=== PATIENT | male | born 1945 | race Caucasian/White ===

== ENCOUNTER 2024-08-08 11:34 | Inpatient (IN) ==
[2024-08-08] MEDS: IPRATROPIUM/ALBUTEROL 3 ML AMPUL.NEB NEB ONE (12:33)
[2024-08-08] MEDS: methylPREDNISolone SOD SUCC 125 MG/2 ML VIAL IV ONE (13:04)
[2024-08-08] MEDS: LORazepam 2 MG/ML VIAL IV ONE (13:05)
[2024-08-08 13:48] LABS: Basophils # (Auto) 0.03 K/mcL (0.00-0.30); Basophils % (Auto) 0.4 % (0.0-2.0); Eosinophils # (Auto) 0.12 K/mcL (0.00-0.70); Eosinophils % (Auto) 1.6 % (0.0-7.0); Hematocrit 34.4 % (40.1-51.0); Hemoglobin 11.7 g/dL (13.7-17.5); Lymphocytes # (Auto) 1.12 K/mcL (1.50-4.80); Lymphocytes % (Auto) 14.6 % (15.5-49.0); Mean Cell Volume 89.1 fL (80.0-100.0); Monocytes # (Auto) 0.73 K/mcL (0.10-0.90); Monocytes % (Auto) 9.5 % (1.0-12.0); Neutrophils % (Auto) 73.6 % (38.0-78.0); Platelet Count 251 K/mcL (140-440); RBC 3.86 M/mcL (4.63-6.08); Red Cell Distribution Width 11.6 % (11.5-14.5); WBC 7.7 K/mcL (4.5-11.0)
[2024-08-08 13:59] LABS: Blood Urea Nitrogen 15 mg/dL (8-23); Calcium 8.9 mg/dL (8.6-10.4); Carbon Dioxide 34 mmol/L (22-30); Chloride 80 mmol/L (96-108); Glomerular Filtration Rate 114; Glucose 108 mg/dL (70-105); Potassium 4.7 mmol/L (3.3-5.1); Sodium 120 mmol/L (133-145)
[2024-08-08] MEDS: DEXAMETHASONE 10 MG/ML VIAL IV ONE (14:29)
[2024-08-08 15:00] LABS: ABG Methemoglobin 0.3 % (0.4-1.5); Total Hemoglobin 12.1 gm/Dl (13.5-16.5); VBG Base Excess 8 (-2-3); VBG HCO3 33.5 mmol/L (24.0-28.0); VBG PCO2 53.7 mmHg (41.0-51.0); VBG PH 7.41 U (7.32-7.42); VBG PO2 125.4 mmHg (25.0-40.0); VBG Total CO2 35.2 mmol/L (25.0-29.0)
[2024-08-08 15:09] LABS: proBNP 93.6 pg/mL (<450.0)
[2024-08-08 15:17] LABS: Thyroid Stimulating Hormone 1.08 uIU/mL (0.27-5.01)
[2024-08-08 15:26] LABS: ALT/SGPT 11 U/L (<40); AST/SGOT 19 U/L (<40); Albumin 4.5 gm/dL (3.2-5.2); Alkaline Phosphatase 93 U/L (39-117); Bilirubin,Direct < 0.2 mg/dL (0-0.3); Bilirubin,Total 0.7 mg/dL (0.1-1.0); Globulin 3.3 gm/dL (2.2-3.7); Uric Acid 1.7 mg/dL (2.5-8.0)
[2024-08-08] MEDS: HYDROmorphone 1 MG/ML SYRINGE IV ONE (15:33)
[2024-08-08] MEDS ORDERED: POTASSIUM CHLORIDE 20 MEQ TABLET PO PRN ×2 (15:55)
[2024-08-08] MEDS ORDERED: POTASSIUM CHLORIDE 40 MEQ in DEXTROSE 5% IN WATER 500 ML IV PRN (15:55)
[2024-08-08] MEDS ORDERED: ENALAPRILAT 1.25 MG/ML VIAL IV PRN (15:55)
[2024-08-08] MEDS ORDERED: hydrALAZINE 20 MG/ML VIAL IV PRN (15:55)
[2024-08-08] MEDS ORDERED: MAGNESIUM SULFATE 2 GM/50 ML BAG IV PRN (15:55)
[2024-08-08] MEDS ORDERED: POLYETHYLENE GLYCOL 3350 17 GM PACKET PO PRN (15:55)
[2024-08-08] MEDS: SODIUM CHLORIDE 1 GM TABLET PO SCH (16:21)
[2024-08-08] MEDS: FUROSEMIDE 40 MG/4 ML VIAL IV SCH (16:22)
[2024-08-08] MEDS: LIDOCAINE 4% TOP PATCH TOPICAL SCH (16:22)
[2024-08-08 17:39] LABS: Appearance,Urine Slightly Cloudy (Clear); Bilirubin,Urine Negative (Negative); Color,Urine Yellow; Glucose,Urine (UA) Negative (Negative); Ketones,Urine 40 mg/dL (Negative); Leukocyte Esterase,Urine Negative /uL (Negative); Nitrate,Urine Negative (Negative); Protein,Urine Negative (Negative); Specific Gravity,Urine 1.015 (1.000-1.035); Urine Blood Negative ery/mcL (Negative); Urine RBC 0 /hpf (0-3); Urine Squamous Epithelial Cell 0 /hpf (0-4); Urine WBC 0 /hpf (0-4); Urobilinogen,Urine Normal
[2024-08-08 18:08] LABS: Osmolality,Urine 408 mOSM/kg (80-1000)
[2024-08-08 18:13] LABS: Sodium, Urine Random 102 mmol/L
[2024-08-08] MEDS: BUDESONIDE 0.5 MG/2 ML AMPUL.NEB NEB SCH (18:23)
[2024-08-08] MEDS: IPRATROPIUM/ALBUTEROL 3 ML AMPUL.NEB NEB PRN (18:23)
[2024-08-08] MEDS: DOCUSATE SODIUM 100 MG CAPSULE PO SCH (20:10)
[2024-08-08] MEDS: BUDESONIDE 0.5 MG/2 ML AMPUL.NEB ONE (20:15)
[2024-08-08] MEDS: 0.9 % SODIUM CHLORIDE 10 ML SYRINGE IV SCH (20:18)
[2024-08-08] MEDS: guaiFENesin 600 MG TAB.SR.12H PO SCH (20:18)
[2024-08-08] MEDS: TAMSULOSIN 0.4 MG CAPSULE PO SCH (20:18)
[2024-08-08] MEDS: HYDROcodone/APAP 5/325MG TABLET PO PRN (21:44)
[2024-08-08] MEDS: METHOCARBAMOL 750 MG TABLET PO PRN (21:46)
[2024-08-09] MEDS: morphine 4 MG/ML VIAL IV PRN (01:54)
[2024-08-09 06:33] LABS: Basophils # (Auto) 0.01 K/mcL (0.00-0.30); Basophils % (Auto) 0.2 % (0.0-2.0); Eosinophils # (Auto) 0 K/mcL (0.00-0.70); Eosinophils % (Auto) 0 % (0.0-7.0); Hematocrit 31.1 % (40.1-51.0); Hemoglobin 10.7 g/dL (13.7-17.5); Lymphocytes # (Auto) 0.88 K/mcL (1.50-4.80); Lymphocytes % (Auto) 15.3 % (15.5-49.0); Mean Cell Volume 89.4 fL (80.0-100.0); Mean Corpuscular HGB Conc 34.4 g/dL (31.0-36.0); Mean Platelet Volume 9.8 fL (8.8-12.5); Monocytes # (Auto) 0.72 K/mcL (0.10-0.90); Monocytes % (Auto) 12.5 % (1.0-12.0); Neutrophils % (Auto) 71.7 % (38.0-78.0); Platelet Count 262 K/mcL (140-440); RBC 3.48 M/mcL (4.63-6.08); Red Cell Distribution Width 11.5 % (11.5-14.5); WBC 5.8 K/mcL (4.5-11.0)
[2024-08-09] MEDS: IPRATROPIUM/ALBUTEROL 3 ML AMPUL.NEB NEB SCH (07:27)
[2024-08-09 07:32] LABS: ALT/SGPT 11 U/L (<40); AST/SGOT 18 U/L (<40); Albumin 4.1 gm/dL (3.2-5.2); Albumin/Globulin Ratio 1.3 (1.0-2.3); Alkaline Phosphatase 91 U/L (39-117); Bilirubin,Direct < 0.2 mg/dL (0-0.3); Bilirubin,Total 0.4 mg/dL (0.1-1.0); Blood Urea Nitrogen 15 mg/dL (8-23); Calcium 8.7 mg/dL (8.6-10.4); Carbon Dioxide 35 mmol/L (22-30); Chloride 79 mmol/L (96-108); Globulin 3.1 gm/dL (2.2-3.7); Glomerular Filtration Rate 104; Glucose 131 mg/dL (70-105); Lactate Dehydrogenase 202 U/L (135-225); Phosphorous 3.5 mg/dL (2.5-4.5); Potassium 4.9 mmol/L (3.3-5.1); Sodium 122 mmol/L (133-145); Triglycerides 24 mg/dL (<150); Uric Acid 2.7 mg/dL (2.5-8.0)
[2024-08-09] MEDS: methylPREDNISolone SOD SUCC 125 MG/2 ML VIAL IV SCH (08:05)
[2024-08-09] MEDS: LOSARTAN 25 MG TABLET PO SCH (08:22)
[2024-08-09] MEDS: ZINC SULFATE 50 MG CAPSULE PO SCH (08:22)
[2024-08-09] MEDS: FUROSEMIDE 20 MG TABLET PO SCH (08:22)
[2024-08-09] MEDS: amLODIPine 5 MG TABLET PO SCH (08:23)
[2024-08-09] MEDS: METOPROLOL SUCCINATE 50 MG TAB.XL.24H PO SCH (08:27)
[2024-08-09] MEDS: ENOXAPARIN 40 MG/0.4 ML SYRINGE SQ SCH (08:29)
[2024-08-09] MEDS ORDERED: Tiotropium Bromide [Spiriva Respimat] 2.5 mcg/act INH SCH (09:00)
[2024-08-09] MEDS: AZITHROMYCIN 500 MG in DEXTROSE 5% IN WATER 250 ML IV SCH (10:32)
[2024-08-09] MEDS: SUCRALFATE 1 GM/10 ML ORAL.SUSP PO ONE (17:59)
[2024-08-09] MEDS: PANTOPRAZOLE 40 MG TABLET PO SCH (17:59)
[2024-08-09] MEDS: CALCIUM CARBONATE 500 MG TAB.CHEW CHEWED PRN (20:25)
[2024-08-09] MEDS: ONDANSETRON 4 MG/2 ML VIAL IV PRN (21:34)
[2024-08-09] MEDS: BISMUTH SUBSALICYLATE 15 ML ORAL.SUSP PO PRN (21:41)
[2024-08-10] MEDS: COSYNTROPIN 0.25 MG VIAL IV ONE (06:00)
[2024-08-10 06:36] LABS: ALT/SGPT 12 U/L (<40); AST/SGOT 22 U/L (<40); Albumin 4.4 gm/dL (3.2-5.2); Albumin/Globulin Ratio 1.3 (1.0-2.3); Alkaline Phosphatase 98 U/L (39-117); Bilirubin,Direct < 0.2 mg/dL (0-0.3); Bilirubin,Total 0.5 mg/dL (0.1-1.0); Blood Urea Nitrogen 15 mg/dL (8-23); Calcium 9.7 mg/dL (8.6-10.4); Carbon Dioxide 38 mmol/L (22-30); Chloride 83 mmol/L (96-108); Globulin 3.4 gm/dL (2.2-3.7); Glomerular Filtration Rate 104; Glucose 111 mg/dL (70-105); Lactate Dehydrogenase 195 U/L (135-225); Phosphorous 2.9 mg/dL (2.5-4.5); Potassium 4.8 mmol/L (3.3-5.1); Sodium 126 mmol/L (133-145); Triglycerides 48 mg/dL (<150); Uric Acid 2.5 mg/dL (2.5-8.0)
[2024-08-10] MEDS: methylPREDNISolone SOD SUCC 125 MG/2 ML VIAL IV ONE (07:48)
[2024-08-10] MEDS: acetaZOLAMIDE SOD 500 MG VIAL IV ONE (07:48)
[2024-08-10] MEDS: methylPREDNISolone SOD SUCC 125 MG/2 ML VIAL IV SCH (14:45)
[2024-08-10] MEDS: ACETAMINOPHEN 325 MG TABLET PO PRN (16:09)
[2024-08-11 05:45] LABS: ALT/SGPT 9 U/L (<40); AST/SGOT 14 U/L (<40); Albumin/Globulin Ratio 1.4 (1.0-2.3); Alkaline Phosphatase 92 U/L (39-117); Bilirubin,Direct < 0.2 mg/dL (0-0.3); Bilirubin,Total 0.3 mg/dL (0.1-1.0); Blood Urea Nitrogen 19 mg/dL (8-23); Calcium 9.2 mg/dL (8.6-10.4); Carbon Dioxide 35 mmol/L (22-30); Chloride 92 mmol/L (96-108); Globulin 2.8 gm/dL (2.2-3.7); Glomerular Filtration Rate 97; Glucose 143 mg/dL (70-105); Lactate Dehydrogenase 179 U/L (135-225); Phosphorous 3.1 mg/dL (2.5-4.5); Potassium 4.3 mmol/L (3.3-5.1); Sodium 133 mmol/L (133-145); Triglycerides 36 mg/dL (<150); Uric Acid 3.4 mg/dL (2.5-8.0)
[2024-08-11] MEDS ORDERED: PHENAZOPYRIDINE 200 MG TABLET PO PRN (09:22)
[2024-08-11] MEDS: FUROSEMIDE 20 MG TABLET PO SCH (10:40)
[2024-08-11] MEDS: SENNOSIDES 1 TABLET PO PRN (10:42)
[2024-08-11] MEDS: methylPREDNISolone SOD SUCC 40 MG/ML VIAL IV SCH (20:06)
[2024-08-12 06:52] LABS: Blood Urea Nitrogen 25 mg/dL (8-23); Carbon Dioxide 35 mmol/L (22-30); Chloride 93 mmol/L (96-108); Glomerular Filtration Rate 104; Glucose 130 mg/dL (70-105); Potassium 4.1 mmol/L (3.3-5.1); Sodium 134 mmol/L (133-145)
[2024-08-13] MEDS ORDERED: FUROSEMIDE 20 MG TABLET PO SCH (09:00)
[2024-08-19 11:41] LABS: Renin Activity,Plasma-SO 1.46 ng/mL/h (0.25-5.82)
== END 2024-08-12 12:45 | disposition home or self-care (01) | DRG 190 ==
LOC: ED 11:34 → ICU 15:50
PROVIDERS: ADMIT Internal Medicine; ATTEND Internal Medicine